=== PATIENT | female | born 1990 | race Caucasian/White ===

== ENCOUNTER 2020-09-06 10:20 | Emergency (ER) | payer OTHER ==
[~2020-09-06] VITALS: Ht 144.8 cm; Wt 96.3 kg
[2020-09-06 11:03] LABS: MICROSCOPIC INDICATED
--- NOTE | 2020-09-06 12:17 | NUR ---
EKG COMPLETED IN TRIAGE
[2020-09-06] MEDS ORDERED: MECLIZINE CHEWABLE 25 MG TAB PO ONE (12:30)
[2020-09-06 12:42] LABS: BASOPHILS % (AUTO) 1 % (0-1); EOSINOPHILS % (AUTO) 2 % (1-7); LYMPHOCYTES % (AUTO) 29 % (22-44); MEAN CORPUSCULAR HEMOGLOBIN 33.5 pg (27.0-34.8); MEAN CORPUSCULAR HGB CONC 34.8 g/dL (32.4-35.8); MEAN PLATELET VOLUME 8.7 fL (7.4-10.4); MONOCYTES % (AUTO) 8 % (2-9); NEUTROPHILS % (AUTO) 61 % (42-75); PLATELET COUNT 207 x10^3/uL (130-400); RED CELL DISTRIBUTION WIDTH 13.3 % (9.6-15.2)
[2020-09-06] MEDS ORDERED: MECLIZINE CHEWABLE 25 MG TAB ONE (12:46)
[2020-09-06 12:50] LABS: ALANINE AMINOTRANSFERASE 92 U/L (12-78); ALBUMIN 3.7 g/dL (3.4-5.0); ANION GAP 7 mmol/L (5-15); CALCIUM 8.4 mg/dL (8.5-10.1); CHLORIDE 108 mmol/L (98-107)
--- NOTE | 2020-09-06 12:56 | NUR ---
ORTHOSTATICS COMPLETED. PT STATES NO INCREASE IN DIZZINESS.
[2020-09-06 12:57] LABS: ALKALINE PHOSPHATASE 77 U/L (45-117); BILIRUBIN,TOTAL 0.6 mg/dL (0.2-1.0); CREATININE 0.59 mg/dL (0.55-1.02); TOTAL PROTEIN 7.7 g/dL (6.4-8.2); TROPONIN I < 0.015 ng/mL (0.000-0.045)
--- NOTE | 2020-09-06 13:06 | NUR ---
VAs COMPLETED BY SHIFT MECHANIC.
--- NOTE | 2020-09-06 13:10 | NUR ---
ALL RESULTS ARE BACK AT THIS TIME. CHART UP FOR RECHECK.
--- NOTE | 2020-09-06 14:08 | NUR ---
MED REQUESTED FROM PHARMACY
[2020-09-06 14:33] VITALS: BP 141/81
--- NOTE | 2020-09-06 15:20 | NUR ---
PT STATES HER DIZZINESS IS "PRETTY MUCH GONE".
== END 2020-09-06 15:22 | disposition home or self-care (01) ==
LOC: ED 12:45
DX: R42 Dizziness and giddiness (principal); E66.9 Obesity, unspecified; Z68.42 Body mass index [BMI] 45.0-49.9, adult; Z90.49 Acquired absence of other specified parts of digestive tract
CPT/HCPCS: 36415; 80053; 81001; 84484; 84703; 85025; 93005; 99284